=== PATIENT | male | born 1970 | race Caucasian/White ===

== ENCOUNTER 2019-09-15 22:09 | Inpatient (IN) ==
[2019-09-15] MEDS ORDERED: Isovue-370 500 ML BOTTLE IVP ONE (22:29)
[2019-09-15 22:40] LABS: Hematocrit 42.6 % (37.5-50.1); Hemoglobin 14.5 g/dL (12.9-16.9); Mean Platelet Volume 9.5 fL (9.4-12.4); Platelet Count 268 K/mcL (140-400); Red Blood Count 4.26 M/mcL (4.19-5.50); Red Cell Distribution Width 12.6 % (11.5-14.5); White Blood Count 10.7 K/mcL (4.3-11.1)
[2019-09-15 22:49] LABS: Prothrombin Time 11.2 Seconds (9.4-12.1)
[2019-09-15 22:52] LABS: Activated Partial Thrombo Time 31.6 Seconds (26.0-36.0)
[2019-09-15 23:05] LABS: BUN/Creatinine Ratio 20 (6-26); Blood Urea Nitrogen 16 mg/dL (6-20); Calcium 9.3 mg/dL (8.6-10.3); Carbon Dioxide 24 mEq/L (23-29); Chloride 99 mEq/L (98-107); Creatine Kinase 151 Units/L (30-223); Ethanol < 10 mg/dL (Less than 10); Glucose 106 mg/dL (70-105); Osmolality,Calculated 276 (280-300); Potassium 3.6 mEq/L (3.5-5.1); Sodium 132 mEq/L (136-145); Troponin I < 0.03 ng/mL (< 0.04); eGFR For African Americans > 60 (> 60); eGFR For Non-African Americans > 60 (> 60)
[2019-09-15 23:13] LABS: Bilirubin,Urine Negative (Negative); Blood,Urine Trace (Negative); Clarity,Urine Clear (Clear); Color,Urine Yellow (Yellow); Glucose,Urine (UA) Normal (Normal); Ketones,Urine Negative (Negative); Leukocyte Esterase,Urine Negative (Negative); Nitrite,Urine Negative (Negative); PH,Urine 6.5 pH Units (5.0-8.0); Protein,Urine Negative (Neg-Trace); Specific Gravity,Urine 1.015 (1.010-1.025); Urobilinogen,Urine Normal (Normal)
[2019-09-15 23:14] LABS: Amphetamine Screen,Urine Negative ng/mL (Cutoff=1000); Barbiturate Screen,Urine Negative ng/mL (Cutoff=200); Benzodiazepines Screen,Urine Negative ng/mL (Cutoff=200); Cannabinoid Screen,Urine Negative ng/mL (Cutoff = 50); Cocaine Screen,Urine Negative ng/mL (Cutoff= 300); Opiate Screen,Urine Negative ng/mL (Cutoff=300); Phencyclidine Screen,Urine Negative ng/mL (Cutoff=25)
[2019-09-15 23:15] LABS: Bacteria,Urine None Seen per hpf (None-Few); Hyaline Casts,Urine None Seen per lpf (None-Few); RBC,Urine 0-3 per hpf (0-3); Squamous Epithelial Cell,Urine None Seen per lpf (None-Few); WBC,Urine 0-3 per hpf (0-3)
[2019-09-16] MEDS ORDERED: Ketorolac 15 MG/ML VIAL IVP ONE (01:05)
[2019-09-16] MEDS ORDERED: Orphenadrine 60 MG/2 ML VIAL IVP ONE (01:05)
[2019-09-16] MEDS ORDERED: Ondansetron 4 MG/2 ML VIAL IVP PRN (02:32)
[2019-09-16] MEDS ORDERED: Naloxone 0.4 MG/ML INJ IVP PRN (02:32)
[2019-09-16] MEDS ORDERED: Acetaminophen 325 MG TABLET PO PRN (02:32)
[2019-09-16] MEDS ORDERED: *HR* HYDROcodone/Acet 5/325 mg TABLET PO PRN ×2 (02:34→22:20)
[2019-09-16] MEDS ORDERED: SUMAtriptan succinate 50 MG TABLET PO PRN (02:34)
[2019-09-16] MEDS ORDERED: *HR* HYDROmorphone (PF) 1 MG/ML SYRINGE IVP PRN (02:56)
[2019-09-16] MEDS: 0.9 % Sodium Chloride 1,000 ML IVC SCH (03:27)
[2019-09-16 04:50] LABS: Prothrombin Time 11.2 Seconds (9.4-12.1)
[2019-09-16 04:54] LABS: Basophils % 0.5 %; Eosinophils # 0.6 K/mcL (0.0-0.6); Eosinophils % 7.1 %; Hematocrit 41.2 % (37.5-50.1); Hemoglobin 13.6 g/dL (12.9-16.9); Immature Granulocytes % 0.3 % (0-4); Lymphocytes # 2.2 K/mcL (0.6-4.6); Lymphocytes % 28.2 %; Mean Corpuscular Hemoglobin 33.1 pg (28.0-33.3); Mean Corpuscular Volume 100.2 fL (83.0-100.0); Mean Platelet Volume 9.5 fL (9.4-12.4); Monocytes # 0.7 K/mcL (0.0-1.3); Monocytes % 9.2 %; Neutrophils # 4.2 K/mcL (1.6-8.9); Platelet Count 245 K/mcL (140-400); Red Blood Count 4.11 M/mcL (4.19-5.50); Red Cell Distribution Width 12.6 % (11.5-14.5); Segmented Neutrophils % 54.7 %; White Blood Count 7.7 K/mcL (4.3-11.1)
[2019-09-16 05:15] LABS: BUN/Creatinine Ratio 20 (6-26); Blood Urea Nitrogen 13 mg/dL (6-20); Calcium 8.9 mg/dL (8.6-10.3); Carbon Dioxide 23 mEq/L (23-29); Chloride 103 mEq/L (98-107); Chol/HDL Ratio 4.1 (0-4.9); Cholesterol 165 mg/dL (< 200); Glucose 105 mg/dL (70-105); HDL Cholesterol 40 mg/dL (40-59); LDL Cholesterol,Calculated 113 mg/dL (0-99); Magnesium 1.9 mg/dL (1.6-2.6); Osmolality,Calculated 276 (280-300); Phosphorous 4.4 mg/dL (2.7-4.5); Potassium 3.8 mEq/L (3.5-5.1); Sodium 133 mEq/L (136-145); Triglycerides 61 mg/dL (< 150); eGFR For African Americans > 60 (> 60); eGFR For Non-African Americans > 60 (> 60)
[2019-09-16 05:39] LABS: Folate 13.5 ng/mL (3.0-16.0)
[2019-09-16] MEDS: *HR* Heparin 5,000 UNIT/ML VIAL SQ SCH ×3 (06:04→22:57)
[2019-09-16] MEDS: Gabapentin 400 MG CAPSULE PO SCH ×3 (09:27→20:06)
[2019-09-16] MEDS: Aspirin 81 MG TAB.CHEW PO SCH (09:28)
[2019-09-16] MEDS: methocarbamoL 750 MG TABLET PO SCH ×3 (09:28→20:06)
[2019-09-16] MEDS: Loratadine 10 MG TABLET PO SCH (09:29)
[2019-09-16] MEDS: Divalproex Sodium 125 MG CAPSULE PO SCH ×2 (09:30→20:06)
[2019-09-16] MEDS ORDERED: Methyl Salicylate/Menthol 28 GM TUBE TP PRN (12:50)
[2019-09-16] MEDS ORDERED: Methyl Salicylate/Menthol 57 APPL/57 GM TUBE TP PRN (14:00)
[2019-09-16] MEDS ORDERED: Gadolinium Contrast Agent (WT Based) IV PRN (14:38)
[2019-09-16] MEDS ORDERED: *HR* HYDROmorphone 2 MG TABLET PO PRN (22:20)
[2019-09-17] MEDS: 0.9 % Sodium Chloride 1,000 ML IVC SCH (00:25)
[2019-09-17] MEDS: *HR* Heparin 5,000 UNIT/ML VIAL SQ SCH ×3 (05:06→20:33)
[2019-09-17] MEDS: Aspirin 81 MG TAB.CHEW PO SCH (10:08)
[2019-09-17] MEDS: methocarbamoL 750 MG TABLET PO SCH ×3 (10:08→20:33)
[2019-09-17] MEDS: Loratadine 10 MG TABLET PO SCH (10:08)
[2019-09-17] MEDS: Gabapentin 400 MG CAPSULE PO SCH ×3 (10:08→20:33)
[2019-09-17] MEDS: Divalproex Sodium 125 MG CAPSULE PO SCH ×2 (10:16→20:33)
[2019-09-17] MEDS: MethylPREDNISolone 40 MG/ML VIAL IVP SCH ×3 (13:26→23:56)
[2019-09-17] MEDS: Ketorolac 30 MG/ML VIAL IVP PRN (16:25)
[2019-09-18] MEDS: *HR* Heparin 5,000 UNIT/ML VIAL SQ SCH ×3 (04:48→20:27)
[2019-09-18] MEDS: MethylPREDNISolone 40 MG/ML VIAL IVP SCH ×3 (06:02→17:18)
[2019-09-18 06:40] LABS: Prothrombin Time 10.9 Seconds (9.4-12.1)
[2019-09-18 06:42] LABS: Activated Partial Thrombo Time 33.5 Seconds (26.0-36.0)
[2019-09-18 06:44] LABS: Basophils % 0.1 %; Hematocrit 44.4 % (37.5-50.1); Hemoglobin 14.9 g/dL (12.9-16.9); Immature Granulocytes % 0.5 % (0-4); Lymphocytes # 0.7 K/mcL (0.6-4.6); Lymphocytes % 5.8 %; Mean Corpuscular HGB Conc 33.6 g/dL (31.6-35.5); Mean Corpuscular Hemoglobin 33.9 pg (28.0-33.3); Mean Corpuscular Volume 100.9 fL (83.0-100.0); Mean Platelet Volume 10.2 fL (9.4-12.4); Monocytes # 0.1 K/mcL (0.0-1.3); Monocytes % 0.9 %; Neutrophils # 11.7 K/mcL (1.6-8.9); Platelet Count 261 K/mcL (140-400); Segmented Neutrophils % 92.7 %
[2019-09-18 06:45] LABS: White Blood Count 12.6 K/mcL (4.3-11.1)
[2019-09-18 06:59] LABS: BUN/Creatinine Ratio 16 (6-26); Blood Urea Nitrogen 11 mg/dL (6-20); Calcium 9.1 mg/dL (8.6-10.3); Carbon Dioxide 25 mEq/L (23-29); Chloride 102 mEq/L (98-107); Glucose 152 mg/dL (70-105); Osmolality,Calculated 280 (280-300); Phosphorous 3.3 mg/dL (2.7-4.5); Potassium 4.3 mEq/L (3.5-5.1); Sodium 134 mEq/L (136-145); eGFR For African Americans > 60 (> 60); eGFR For Non-African Americans > 60 (> 60)
[2019-09-18] MEDS: methocarbamoL 750 MG TABLET PO SCH ×3 (10:04→20:26)
[2019-09-18] MEDS: Gabapentin 400 MG CAPSULE PO SCH ×3 (10:04→20:26)
[2019-09-18] MEDS: Divalproex Sodium 125 MG CAPSULE PO SCH ×2 (10:05→20:26)
[2019-09-18] MEDS: Aspirin 81 MG TAB.CHEW PO SCH (10:05)
[2019-09-18] MEDS: Loratadine 10 MG TABLET PO SCH (10:05)
[2019-09-18] MEDS: Ketorolac 30 MG/ML VIAL IVP PRN ×2 (10:06→17:18)
[2019-09-18] MEDS ORDERED: Ipratropium/Albuterol Neb 3 ML IH PRN (14:01)
[2019-09-19 02:52] LABS: Basophils % 0.1 %; Hematocrit 39.9 % (37.5-50.1); Hemoglobin 13.5 g/dL (12.9-16.9); Immature Granulocytes % 0.7 % (0-4); Lymphocytes # 1.1 K/mcL (0.6-4.6); Lymphocytes % 6.1 %; Mean Corpuscular HGB Conc 33.8 g/dL (31.6-35.5); Mean Corpuscular Hemoglobin 33.9 pg (28.0-33.3); Mean Corpuscular Volume 100.3 fL (83.0-100.0); Mean Platelet Volume 10.7 fL (9.4-12.4); Monocytes # 0.9 K/mcL (0.0-1.3); Monocytes % 4.8 %; Neutrophils # 16.4 K/mcL (1.6-8.9); Platelet Count 271 K/mcL (140-400); Red Blood Count 3.98 M/mcL (4.19-5.50); Red Cell Distribution Width 12.4 % (11.5-14.5); Segmented Neutrophils % 88.3 %; White Blood Count 18.6 K/mcL (4.3-11.1)
[2019-09-19] MEDS: *HR* Heparin 5,000 UNIT/ML VIAL SQ SCH (05:24)
[2019-09-19] MEDS ORDERED: CeFAZolin Syr 2,000MG/20 ML 2,000 MG/20 ML SYRINGE IVPB ONE (06:49)
[2019-09-19] MEDS: Aspirin 81 MG TAB.CHEW PO SCH (08:19)
[2019-09-19] MEDS: methocarbamoL 750 MG TABLET PO SCH ×2 (08:19→21:54)
[2019-09-19] MEDS: Divalproex Sodium 125 MG CAPSULE PO SCH ×2 (08:19→21:54)
[2019-09-19] MEDS: Gabapentin 400 MG CAPSULE PO SCH (08:19)
[2019-09-19] MEDS: Loratadine 10 MG TABLET PO SCH (08:19)
[2019-09-19] MEDS ORDERED: Bacitracin 50,000 UNIT, Polymyxin B Sulfate 500,000 UNIT, Sodium Chloride IRRigation 1,... IR ONE (11:45)
[2019-09-19] MEDS ORDERED: *HR* Remifentanil 1 MG VIAL IVP ONE ×2 (12:52→15:21)
[2019-09-19] MEDS ORDERED: *HR* Propofol 200 MG/20 ML VIAL IVP ONE ×2 (12:54→14:11)
[2019-09-19] MEDS ORDERED: *HR* FentaNYL (PF) 100 MCG/2 ML VIAL ONE ×2 (12:54→13:39)
[2019-09-19] MEDS ORDERED: *HR* HYDROmorphone PF 0.5 MG/0.5 ML SYRINGE IVP PRN (12:55)
[2019-09-19] MEDS ORDERED: Ondansetron 4 MG/2 ML VIAL IVP ONE (12:55)
[2019-09-19] MEDS ORDERED: *HR* OxyCODONE Immed Rel 5 MG TABLET PO PRN (12:55)
[2019-09-19] MEDS ORDERED: EPHEDrine 50 MG/ML VIAL ONE (13:49)
[2019-09-19] MEDS ORDERED: *HR* PHENYLEPHRINE 1,000 MCG/10 ML SYRINGE IVP ONE (13:49)
[2019-09-19] MEDS ORDERED: Naloxone 0.4 MG/ML INJ IVP PRN ×2 (17:19)
[2019-09-19] MEDS ORDERED: Methyl Salicylate/Menthol 57 APPL/57 GM TUBE TP PRN (17:19)
[2019-09-19] MEDS ORDERED: Ondansetron 4 MG/2 ML VIAL IVP PRN (17:19)
[2019-09-19] MEDS ORDERED: *HR* HYDROcodone/Acet 5/325 mg TABLET PO PRN (17:19)
[2019-09-19] MEDS ORDERED: Acetaminophen 325 MG TABLET PO PRN ×2 (17:19)
[2019-09-19] MEDS ORDERED: Ringers Solution, Lactated 1,000 ML IVC SCH (17:19)
[2019-09-19] MEDS: *HR* OxyCODONE Immed Rel 5 MG TABLET PO PRN (18:06)
[2019-09-19] MEDS: ceFAZolin 2,000 MG in 0.9 % Sodium Chloride 100 ML IVPB SCH (21:59)
[2019-09-20] MEDS: ceFAZolin 2,000 MG in 0.9 % Sodium Chloride 100 ML IVPB SCH (05:21)
[2019-09-20] MEDS: *HR* OxyCODONE Immed Rel 5 MG TABLET PO PRN (05:22)
[2019-09-20] MEDS: methocarbamoL 750 MG TABLET PO SCH (07:23)
[2019-09-20] MEDS: Divalproex Sodium 125 MG CAPSULE PO SCH (07:23)
[2019-09-20] MEDS ORDERED: Aspirin 81 MG TAB.CHEW PO SCH (09:00)
[2019-09-20] MEDS ORDERED: Loratadine 10 MG TABLET PO SCH (09:00)
[2019-09-20 09:21] LABS: Hematocrit 42.4 % (37.5-50.1); Hemoglobin 14.1 g/dL (12.9-16.9); Mean Corpuscular HGB Conc 33.3 g/dL (31.6-35.5); Mean Corpuscular Hemoglobin 33.7 pg (28.0-33.3); Mean Corpuscular Volume 101.2 fL (83.0-100.0); Platelet Count 263 K/mcL (140-400); Red Blood Count 4.19 M/mcL (4.19-5.50); Red Cell Distribution Width 12.8 % (11.5-14.5); White Blood Count 13.8 K/mcL (4.3-11.1)
[2019-09-20 09:41] LABS: BUN/Creatinine Ratio 13 (6-26); Blood Urea Nitrogen 10 mg/dL (6-20); Calcium 8.5 mg/dL (8.6-10.3); Carbon Dioxide 26 mEq/L (23-29); Chloride 100 mEq/L (98-107); Glucose 109 mg/dL (70-105); Magnesium 1.9 mg/dL (1.6-2.6); Osmolality,Calculated 282 (280-300); Potassium 4.3 mEq/L (3.5-5.1); Sodium 136 mEq/L (136-145); eGFR For African Americans > 60 (> 60); eGFR For Non-African Americans > 60 (> 60)
[2019-09-20 11:47] VITALS: BP 118/70
== END 2019-09-20 13:55 | disposition home or self-care (01) | DRG 321 ==
LOC: EMEROOARM 22:09 → 3BNU 22:09 → SUATTDRO 09-16 01:11 → 3BNU 09-16 01:57 → SUATTDRO 09-18 13:39 → 3NENU 09-19 12:57
PROVIDERS: ADMIT Internal Medicine; ATTEND Internal Medicine